=== PATIENT | female | born 1945 | race Caucasian/White ===

== ENCOUNTER 2025-02-02 12:48 | Emergency (ER) | payer MEDICARE, OTHER, SELFPAY ==
[2025-02-02 12:50] VITALS: BP 142/74; BMI 25.3
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
[2025-02-02] MEDS: ASPIRIN 325 MG PO (15:27)
[2025-02-02] MEDS: NSS 1000 IV (15:27)
[2025-02-02] MEDS: ZOFRAN 4 MG IV (15:27)
[2025-02-02] MEDS: ADACEL 0.5 ML IM (16:49)
== END 2025-02-02 17:02 | disposition home or self-care (01) ==
LOC: EMR 12:48
PROVIDERS: EMERGENCY PHYSICIAN Emergency Medicine; FAMILY PHYSICIAN Family Medicine
DX: S50.312A Abrasion of left elbow, initial encounter (principal); S00.90XA Unspecified superficial injury of unspecified part of head, initial encounter; V18.0XXA Pedal cycle driver injured in noncollision transport accident in nontraffic accident, initial encounter; Y93.55 Activity, bike riding; G89.29 Other chronic pain; Z23 Encounter for immunization
CPT/HCPCS: 90471; 96374; 96361; 99284; 70450; 72125; 73080; 90715